=== PATIENT | female | born 1945 | race Caucasian/White ===

== ENCOUNTER → 2021-03-20 15:32 | Outpatient (BNVA) | payer MEDICARE, SELFPAY | PROVIDERS: Family Provider Family Medicine; PCP Family Medicine; Visit Provider Internal Medicine Cardiovascular Disease | DX: E05.90 Thyrotoxicosis, unspecified without thyrotoxic crisis or storm (principal); I48.91 Unspecified atrial fibrillation; I10 Essential (primary) hypertension; M17.0 Bilateral primary osteoarthritis of knee; Z79.899 Other long term (current) drug therapy | CPT/HCPCS: 80053; 83735; 84443; 85025 ==

== ENCOUNTER → 2021-04-23 10:30 | Outpatient (BNVA) | payer MEDICARE, SELFPAY | PROVIDERS: Family Provider Family Medicine; PCP Internal Medicine; Visit Provider Internal Medicine Cardiovascular Disease | DX: R06.00 Dyspnea, unspecified (principal); I10 Essential (primary) hypertension; E05.90 Thyrotoxicosis, unspecified without thyrotoxic crisis or storm; I48.91 Unspecified atrial fibrillation | CPT/HCPCS: 80053; 83880 ==

== ENCOUNTER → 2021-05-02 10:08 | Outpatient (BNVA) | payer MEDICARE, SELFPAY | PROVIDERS: Family Provider Family Medicine; PCP Internal Medicine; Visit Provider Internal Medicine Cardiovascular Disease | DX: R06.00 Dyspnea, unspecified (principal); I10 Essential (primary) hypertension; I48.91 Unspecified atrial fibrillation | CPT/HCPCS: 80048; 83735; 83880 ==

== ENCOUNTER 2021-08-05 15:35 | Outpatient (CLI) | payer MEDICARE, SELFPAY ==
--- NOTE | 2021-08-05 15:45 | USCV_ITS ---
WorkerYuridia Age: 76 Gender: F : 1945 Exam Date: 08/05/2021 16:10 Ordering Phys: Bella Clayton MD ([email or web address]) Technologist: Dragan Delcid Exam Location: [facility] Indication: A FIB BP: 150 / 90 HR: 100 Rhythm: Other Technical Quality: Adequate MEASUREMENTS (Male / Female) Normal Values 2D ECHO LV Diastolic Diameter PLAX 2.6 cm 4.2 - 5.9 / 3.9 - 5.3 cm LV Systolic Diameter PLAX 1.6 cm IVS Diastolic Thickness 1.3 cm 0.6 - 1.0 / 0.6 - 0.9 cm IVS Systolic Thickness 1.4 cm LVPW Diastolic Thickness 1.9 cm 0.6 - 1.0 / 0.6 - 0.9 cm LVPW Systolic Thickness 1.8 cm LVOT Diameter 2.0 cm LV Ejection Fraction 2D Teich 71.7 % LV Ejection Fraction MOD 2C 53.5 % LV Ejection Fraction 2C AL 61.6 % LA Diameter 4.0 cm LA Width 3.9 cm LA Height 5.2 cm RA Width 4.6 cm RA Height 7.0 cm Aorta at Sinotubular Diameter 2.0 cm DOPPLER AV Peak Velocity 167.0 cm/s LVOT Peak Velocity 137.0 cm/s AV Area Cont Eq vti 3.1 cm squared AV Area Cont Eq pk 2.6 cm squared TR Peak Velocity 353.0 cm/s TR Peak Gradient 49.8 mmHg TR Mean Velocity 262.9 cm/s TR Mean Gradient 29.9 mmHg TR Velocity Time Integral 95.3 cm Right Atrial Pressure 3.0 mmHg Pulmonary Artery Systolic Pressu 52.8 mmHg RV Acceleration Time 0.1 s RV Ejection Time 0.3 s RV AcT/ET 0.3 FINDINGS Left Ventricle Normal left ventricular cavity size. Increased left ventricular wall thickness. Moderate concentric left ventricular hypertrophy. Normal left ventricular systolic function. Left ventricular ejection fraction is estimated at 70-75 %. No regional wall motion abnormalities. Abnormal diastolic function. Right Ventricle Normal right ventricular size and systolic function. Right ventricular systolic pressure 54 mmHg. Right Atrium Moderately increased right atrial size. Right atrial pressure estimated at 15 mmHg. Left Atrium Markedly increased left atrial size. Mitral Valve Moderate to severe mitral annular calcification. Mildly thickened mitral valve. No mitral valve stenosis. Mild mitral valve regurgitation. Aortic Valve Mildly thickened trileaflet aortic valve. No aortic valve stenosis. No aortic valve regurgitation. Tricuspid Valve Structurally normal tricuspid valve. No tricuspid valve stenosis. Mild to Moderate tricuspid valve regurgitation. Pulmonic Valve Pulmonic valve not well visualized. Trace pulmonary valve regurgitation. Pericardium No pericardial effusion. Aorta Normal size aortic root and proximal ascending aorta. Dilated inferior vena cava with decreased respiratory variation. CONCLUSIONS 1. Normal left ventricular cavity size and systolic function. Moderate concentric left ventricular hypertrophy. Left ventricular ejection fraction is estimated at 70-75 %. No regional wall motion abnormalities. Abnormal diastolic function. 2. Normal right ventricular size and systolic function. 3. Moderate pulmonary hypertension with pulmonary artery pressure estimated 54 mmHg. 4. Markedly increased left atrial size. 5. Mild to moderate tricuspid valve regurgitation. 6. Mild mitral valve regurgitation. 7. When compared to previous echocardiogram dated 06/21/2019, mitral and tricuspid valve regurgitation seems to have worsened. Bella Clayton MD (Electronically Signed) Final Date: 09 August 2021 16:59 S
== END 2021-08-05 15:36 | disposition home or self-care (01) ==
LOC: US 15:36
PROVIDERS: PCP Internal Medicine; Visit Provider Internal Medicine Cardiovascular Disease
DX: I48.91 Unspecified atrial fibrillation (principal); I27.20 Pulmonary hypertension, unspecified; I08.1 Rheumatic disorders of both mitral and tricuspid valves
CPT/HCPCS: 93306

== ENCOUNTER → 2022-04-24 11:23 | Outpatient (BNVA) | payer MEDICARE, SELFPAY | PROVIDERS: PCP Internal Medicine; Visit Provider Internal Medicine Cardiovascular Disease | DX: R06.00 Dyspnea, unspecified (principal); I11.0 Hypertensive heart disease with heart failure; I50.32 Chronic diastolic (congestive) heart failure; I48.91 Unspecified atrial fibrillation; Z79.01 Long term (current) use of anticoagulants; Z87.891 Personal history of nicotine dependence | CPT/HCPCS: 99214 ==

== ENCOUNTER 2022-05-15 08:59 | Outpatient (CLI) | payer MEDICARE, SELFPAY ==
--- NOTE | 2022-05-15 09:08 | MM_ITS ---
WS: [id number] Bilateral screening 3D tomosynthesis digital mammogram, 05/15/2022 Clinical Data: SCREENING Comparison: None. Findings: The breast parenchymal pattern shows fibroglandular tissue. No spiculated masses or clustered calcifi cations are seen. There are no secondary signs of carcinoma. There are mole markers on both breasts. MM/[place] [id number] Impression: 1. Negative bilateral mammogram with no prior exam for review.. 2. Recommend annual screening mammograms. BIRADS: 1-Negative FOLLOW UP: 1 Year Follow-up The CAD credit rating checker was used.
== END 2022-05-15 09:00 | disposition home or self-care (01) ==
PROVIDERS: PCP Internal Medicine; Visit Provider Family Medicine
DX: Z12.31 Encounter for screening mammogram for malignant neoplasm of breast (principal)
CPT/HCPCS: 77063; 77067

== ENCOUNTER → 2023-07-07 15:18 | Outpatient (BNVA) | payer MEDICARE, SELFPAY | PROVIDERS: PCP Internal Medicine; Visit Provider Internal Medicine Cardiovascular Disease | DX: R06.00 Dyspnea, unspecified (principal); I48.91 Unspecified atrial fibrillation; Z79.01 Long term (current) use of anticoagulants; I11.0 Hypertensive heart disease with heart failure; I50.32 Chronic diastolic (congestive) heart failure; Z87.891 Personal history of nicotine dependence | CPT/HCPCS: 99214 ==

== ENCOUNTER → 2024-06-28 13:46 | Outpatient (BNVA) | payer MEDICARE, SELFPAY | PROVIDERS: PCP Internal Medicine; Visit Provider Internal Medicine Cardiovascular Disease | DX: I48.91 Unspecified atrial fibrillation (principal); Z79.01 Long term (current) use of anticoagulants; R06.00 Dyspnea, unspecified; I11.0 Hypertensive heart disease with heart failure; I50.32 Chronic diastolic (congestive) heart failure; E05.90 Thyrotoxicosis, unspecified without thyrotoxic crisis or storm; Z87.891 Personal history of nicotine dependence | CPT/HCPCS: 99214 ==

== ENCOUNTER 2024-08-29 11:40 | Emergency (ER) | payer MEDICARE, SELFPAY ==
--- NOTE | 2024-08-29 11:42 | CT_ITS ---
WS: [id number] CT CERVICAL SPINE HISTORY: fall TECHNIQUE: Contiguous 2.0 mm axial imaging performed through the entire cervical spine. Sagittal and coronal reformats also performed. All CT scans at [facility] use at least one of these dose o ptimization techniques: automated exposure control; mA and/or kV adjustment per patient size (include s targeted exams where dose is matched to clinical indication); or iterative reconstruction. DLP: 1869.62 mGy.cm COMPARISON: None available. Straightening of the normal cervical lordosis. C3 anterolisthesis by 4 mm. Disc spaces are diffusely narrowed. Hypertrophic osteophytes. Osseous fusion between the LEFT C3 and C4 articular facets. Later al masses of C1 and C2 are aligned. The odontoid is intact. Marked bilateral facet joint arthritis, moderate LEFT foraminal stenosis at C3-4. Moderate central an d bilateral foraminal stenosis at C5-6 and C6-7. Lung apices are clear. CT/CT cervical spin wo con* [id number] IMPRESSION: 1. No acute cervical spine fracture. 2. Advanced cervical spondylosis with facet joint arthropathy and stenoses as above.
--- NOTE | 2024-08-29 11:42 | CT_ITS ---
WS: [id number] CT HEAD NONCONTRAST HISTORY: injury TECHNIQUE: Contiguous axial imaging performed through the brain. Bone and soft tissue windows. Sagitt al and coronal reformats reviewed. All CT scans at [facility] use at least one of these dose optimization techniques: automated exposure control; mA and/or kV adjustment per patient size (includ es targeted exams where dose is matched to clinical indication); or iterative reconstruction. DLP: 1869.62 mGy.cm COMPARISON: None available. No acute intracranial hemorrhage, midline shift or mass effect. Mild atrophy and mild small vessel ischemic changes. Ventricles: Normal size with no hydrocephalus. No inferior displacement of cerebellar tonsils. Paranasal sinuses: As visualized are clear. Mastoid air cells: Well pneumatized. Calvarium and scalp: No skull fracture. Moderate-sized soft tissue contusion with hemorrhage centered over the RIGHT frontal bone. CT/CT head wo con* [id number] IMPRESSION: 1. No acute intracranial hemorrhage or edema. 2. Mild cerebral atrophy and small vessel disease. 3. Acute scalp hematoma centered over the RIGHT frontal bone.
--- NOTE | 2024-08-29 11:42 | CT_ITS ---
WS: [id number] CT FACIAL BONES HISTORY: fall TECHNIQUE: Images obtained from the supraorbital location through the mandible. Soft tissue and bone windows are reviewed. Coronal and sagittal reformats have also been submitted. DLP: 1869.[address] scans at [place] use at least one of these dose optimization techniques: automated e xposure control; mA and/or kV adjustment per patient size (includes targeted exams where dose is matc hed to clinical indication); or iterative reconstruction. COMPARISON: None available. Acute bilateral nasal bone fractures without significant displacement. Slightly greater comminution o n the LEFT nasal bone. Zygomatic arches are intact. Orbits are intact. No additional fractures. No ma ndible fracture. There are no air-fluid levels in the paranasal sinuses. Large acute hemorrhagic soft tissue hematoma centered over the RIGHT frontal bone. Superior cervical spine demonstrates advanced degenerative changes but no fracture. CT/CT facial bones wo con* [id number] IMPRESSION: 1. Acute bilateral nasal bone fractures without displacement. 2. Large, acute RIGHT frontal scalp hematoma.
--- NOTE | 2024-08-29 11:50 | ED_ITS ---
HPI - General Adult General: Chief complaint: Head Injury Stated complaint: fall, hit face on side walk, bleeding Time Seen by Provider: 08/29/24 11:49 History of Present Illness: -year-old female stumbled and fell outsi de of a local business. She hit her face on the concrete. She is on blood thinner. No loss consciousness no vomiting denies any other injuries. Associated symptoms: Deny chest pain, dyspnea or rash Related Data Home Medications Medication Instructions Recorded Confirmed magnesium oxide 250 mg PO DAILY 06/20/21 06/20/21 mineral oil ea miscellaneous 11/12/21 multivitamin 1 tab PO DAILY 11/12/21 methimazole 10 mg tablet 10 mg PO DAILY 04/24/22 losartan 25 mg tablet 50 mg PO BID 05/21/22 acetaminophen 325 mg tablet 650 mg PO .HS 06/28/24 amlodipine 2.5 mg tablet 2.5 mg PO DAILY 06/28/24 cholestagel PO 06/28/24 collagen peptide PO 06/28/24 Previous Rx's Medication Instructions Recorded metoprolol tartrate 50 mg tablet 50 mg PO BID #180 tabs 07/11/22 furosemide 40 mg tablet 20 mg (1/2 x 40 mg) PO DAILY #45 08/11/23 tabs apixaban 5 mg tablet (Eliquis) 5 mg PO BID #180 tabs 07/20/24 diclofenac sodium 75 mg 75 mg PO Q12H PRN pain #20 tabs 08/29/24 tablet,delayed release mupirocin 2 % topical ointment 1 applic topical TID #50 grams 08/29/24 Allergies Allergy/AdvReac Type Severity Reaction Status Date / Time tuberculin,PPD,multi-puncture Allergy ALGY-Rash Verified 06/28/24 14:10 Review of Systems Const: Denies: fever(s) or chills Card: Denies: chest pain Resp: Denies: dyspnea GI: Denies: abdominal pain : Denies: dysuria, urinary frequency or urinary urgency Musc: Denies: neck pain or back pain Skin/Breast: Denies: rash PFSH ED PFSH: Medical History CHF (congestive heart failure), NYHA class III Hyperthyroidism Hypertension Cataract Hyperglycemia Osteoarthritis of both knees Surgical History H/O section Hx of appendectomy Family History Mother Hypertension Father Lung disease Denies family history of Diabetes CAD (coronary artery disease) Clotting disorder Dementia Hyperlipidemia Psychiatric illness Chronic kidney disease (CKD) Suicide Anesthesia complication Bleeding disorder Family history of premature coronary artery disease Cancer Stroke Social History Smoking and tobacco/nicotine status: former use of tobacco/nicotine Quit status (tobacco/nicotine): has quit using Year quit tobacco: years ago Second hand smoke exposure: No Alcohol intake: never Substance/Drug Use: never Physical Exam Const: COMMON NORMALS: no acute distress GENERAL APPEARANCE: cooperative and comfortable ORIENTATION/CONSCIOUSNESS: Yes awake, Yes oriented to person, Yes oriented to place and Yes oriented to time HENMT: COMMON NORMALS: normocephalic and hearing grossly normal bilaterally HEAD & SCALP: normocephalic OTHER: Multiple facial abrasions particularly above the right eye and at the nasal os on the right side. No full-thickness lacerations noted. Resp: COMMON NORMALS: normal respiratory effort, No retractions, No use of accessory muscles and clear to auscultation bilaterally AUSCULTATION: clear to auscultation bilaterally Cardio: COMMON NORMALS: regular rate, regular rhythm and No murmurs present (Cardio) RATE: regular rate RHYTHM: regular rhythm GI: COMMON NORMALS: Soft to palpation and No hepatosplenomegaly present AUSCULTATION: Yes normoactive bowel sounds PALPATION: Yes Soft to palpation, No Tenderness to palpation present (GI), No Guarding due to palpation present (GI) and Yes No hepatosplenomegaly present Extremity: COMMON NORMALS: normal to inspection, capillary refill normal, no clubbing, cyanosis or edema, no calf tenderness and no pedal edema Neuro: SENSORIUM/ORIENTATION: Yes oriented to person, Yes oriented to place and Yes oriented to time Skin: COMMON NORMALS: no rashes or lesions noted GENERAL SKIN EXAM: no rashes or lesions noted Course Vital Signs: Vital signs: Vital Signs Temperature 98.1 F 08/29/24 12:05 Pulse Rate 81 08/29/24 13:02 Respiratory Rate 18 08/29/24 12:05 Blood Pressure 151/98 08/29/24 13:02 Pulse Oximetry 98 08/29/24 13:02 Oxygen Delivery Me thod Room Air 08/29/24 12:14 MDM - General Adult Medical Decision Making Imaging reviewed patient has a nasal bone fracture is not significantly displaced. Is no wounds requiring sutures. Topical antibiotic follow-up with primary care regarding the nasal bone fracture referral to ENT at a later date. CT of C-spine negative CT head also negative for any acute intracranial pathology. Does have a facial hematoma much was noted on the facial bone CT as well as a head CT. Lab Data Radiology Impressions Cervical Spine CT 08/29/24 11:42 IMPRESSION: 1. No acute cervical spine fracture. 2. Advanced cervical spondylosis with facet joint arthropathy and stenoses as above. Face CT 08/29/24 11:42 IMPRESSION: 1. Acute bilateral nasal bone fractures without displacement. 2. Large, acute RIGHT frontal scalp hematoma. Head CT 08/29/24 11:42 IMPRESSION: 1. No acute intracranial hemorrhage or edema. 2. Mild cerebral atrophy and small vessel disease. 3. Acute scalp hematoma centered over the RIGHT frontal bone. All radiology interpretation(s) finalized by discharge Discharge Plan Discharge Patient Disposition: Home Clinical Impression: Abrasion of face, Closed fracture nasal bone Condition: Stable Prescriptions: New mupirocin 2 % ointment 1 applic topical TID Qty: 50 0RF diclofenac sodium 75 mg tablet,delayed release (DR/EC) 75 mg PO Q12H PRN (Reason: pain) Qty: 20 0RF No Action magnesium oxide 250 mg magnesium tablet 250 mg PO DAILY methimazole 10 mg tablet 10 mg PO DAILY multivitamin Tablet 1 tab PO DAILY mineral oil Oil miscellaneous acetaminophen 325 mg tablet 650 mg PO .HS collagen peptide PO amlodipine 2.5 mg tablet 2.5 mg PO DAILY cholestagel PO losartan 25 mg tablet 50 mg PO BID metoprolol tartrate 50 mg tablet 50 mg PO BID Qty: 180 3RF furosemide 40 mg tablet 20 mg PO DAILY Qty: 45 3RF Eliquis 5 mg tablet 5 mg PO BID Qty: 180 3RF Discharge Orders: Discharge ED (Routine); Ordered 08/29/24 Ordered By: Ted Schumacher Referrals: Shruthi Bloom DO [Primary Care Provider] - Discharge Diet: Usual diet Discharge Activity: Increase activity as tolerated Patient Instructions: Opioid Safety, Pain Management Activity Restrictions/Additional Instructions: Thank you for choosing [facility] for your healthcare needs today. It is very important that you follow up as instructed or that you return to the Emergency Department should you have concerns or if your condition changes or worsens in any way. You were seen in the emergency room after a fall. You have multiple abrasions on the face. None of these require sutures. You do have a nasal bone fracture but is not significantly displaced. Apply topical antibiotic ointment to the wounds on the face at least 2-3 times a day until they heal. Be especially careful with the wound under the nose that is most likely to become infected from bacteria within the nose. Follow-up with your primary care doctor and they can refer you to ENT regarding the nasal bone fracture if appropriate. 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
[2024-08-29 12:05] VITALS: BP 173/112; PULSE 84; RESP 18; TEMP 36.7; O2SAT 96
[2024-08-29 12:14] VITALS: O2SAT 97
[2024-08-29 13:02] VITALS: BP 151/98; PULSE 81; O2SAT 98
== END 2024-08-29 13:03 | disposition home or self-care (01) ==
PROVIDERS: Emergency Provider Family Medicine; PCP Internal Medicine
DX: S00.81XA Abrasion of other part of head, initial encounter (principal); S02.2XXA Fracture of nasal bones, initial encounter for closed fracture; W19.XXXA Unspecified fall, initial encounter
CPT/HCPCS: 70450; 70486; 72125; 99284

== ENCOUNTER 2025-03-03 13:31 | Outpatient (CLI) | payer MEDICARE, SELFPAY ==
--- NOTE | 2025-03-03 13:34 | XR_ITS ---
WS: [id number] SCREENING DEXA SCAN [place] CLINICAL INFORMATION: POSTMENOPAUSAL COMPARISON: 2017 FINDINGS: The L1-L4 bone mineral density measures 1.146 g/cm2. This corresponds to a T score score of -0.3 and Z score of 0.4. Left femoral neck bone mineral density measures 0.887 g/cm2. This corresponds to a T score of -1.0 and Z score of 0.3. Right femoral neck bone mineral density measures 0.772 g/cm2. This corresponds to a T score -1.9of and Z score of -0.6. Mean femoral neck bone mineral density measures 0.829 g/cm2. This corresponds to a T score of -1.4 and Z score of -0.2. XR/XR DEXA axial skeleton* [id number] IMPRESSION: Normal bone mineralization lumbar spine. Osteopenia femoral necks Patient's FRAX calculated 10 year probability for major osteoporotic fracture i s 13.7% and osteoporotic hip fracture is 3.7%. Bone density lumbar spine decreased -6.2% Bone density femoral necks decreased -13.4%
== END 2025-03-03 13:32 | disposition home or self-care (01) ==
LOC: RAD 13:32
PROVIDERS: PCP Internal Medicine; Visit Provider Family Medicine
DX: Z78.0 Asymptomatic menopausal state (principal); M85.88 Other specified disorders of bone density and structure, other site
CPT/HCPCS: 77080